=== PATIENT | female | born 1965 | race Caucasian/White ===

== ENCOUNTER 2021-04-24 00:22 | Emergency (ER) | payer OTHER ==
[2021-04-24] MEDS ORDERED: FAMOTIDINE 20 MG/2 ML VIAL IV STA (00:47)
[2021-04-24] MEDS ORDERED: diphenhydrAMINE 50 MG/ML 1 ML VIAL IVP STA (00:47)
[2021-04-24] MEDS ORDERED: methylPREDNISolone SOD SUCCI 125 MG/2 ML VIAL IV STA (00:47)
--- NOTE | 2021-04-24 00:48 | ED ---
Allergic Reaction HPI - General Chief complaint: Allergic Reaction Stated complaint: Sore throat Time Seen by Provider: 04/24/21 00:29 Source: patient, RN notes reviewed, old records reviewed Mode of arrival: ambulatory Limitations: no limitations - History of Present Illness Initial Comments: This is a 55-year-old female DF for evaluation. Patient states that she went to bed tonight and woke her up which causes her to go to the bathroom. Patient has history of high blood pressure has been the same medications for 15 years. Patient states she feels like something was resting of the back of her tongue and she feels like her daily thing is sitting on her tongue. She did gargle with saltwater with mild improvement but symptoms persisted. She denies being short of breath but does have some pain when swallowing. Otherwise no complaints no fevers. Patient is on lisinopril Complaint: allergic reaction, other (Lisinopril-induced angioedema) -: unknown Exposure: unknown Symptoms: other (Uvula swollen) Severity: mild Treatment Prior to Arrival: none Previous Allergy History: none - Related Data Home Medications Medication Instructions Recorded Confirmed Metoprolol Succinate [Toprol XL] 50 mg PO DAILY 06/07/15 06/08/15 lisinopriL [Prinivil] 20 mg PO DAILY 06/07/15 06/08/15 Allergies Allergy/AdvReac Type Severity Reaction Status Date / Time No Known Allergies Allergy Verified 04/24/21 00:27 Review of Systems ROS Statement: Those systems with pertinent positive or pertinent negative responses have been documented in the HPI. ROS Other: All systems not noted in ROS Statement are negative. Past Medical History Past Medical History: Hypertension History of Any Multi-Drug Resistant Organisms: None Reported Past Surgical History: No Surgical Hx Reported Past Anesthesia/Blood Transfusion Reactions: No Reported Reaction Past Psychological History: No Psychological Hx Reported Smoking Status: Never smoker Past Alcohol Use History: Occasional Past Drug Use History: None Reported General Exam General appearance: alert, in no apparent distress Head exam: Present: atraumatic, normocephalic, normal inspection Eye exam: Present: normal appearance, PERRL, EOMI. Absent: scleral icterus, conjunctival injection, periorbital swelling ENT exam: Present: normal exam, mucous membranes moist, other (Patient does have significant for swollen uvula resting on time, no stridor, no airway compromise) Neck exam: Present: normal inspection. Absent: tenderness, meningismus, lymphadenopathy Respiratory exam: Present: normal lung sounds bilaterally. Absent: respiratory distress, wheezes, rales, rhonchi, stridor Cardiovascular Exam: Present: regular rate, normal rhythm, normal heart sounds. Absent: systolic murmur, diastolic murmur, rubs, gallop, clicks GI/Abdominal exam: Present: soft, normal bowel sounds. Absent: distended, tenderness, guarding, rebound, rigid Extremities exam: Present: normal inspection, full ROM, normal capillary refill. Absent: tenderness, pedal edema, joint swelling, calf tenderness Back exam: Present: normal inspection Neurological exam: Present: alert, oriented X3, CN II-XII intact Psychiatric exam: Present: normal affect, normal mood Skin exam: Present: warm, dry, intact, normal color. Absent: rash Course Vital Signs 04/24/21 04/24/21 00:23 01:50 Pulse Rate 91 85 Respiratory 19 16 Rate Blood Pressure 131/75 O2 Sat by Pulse 98 96 Oximetry - Reevaluation(s) Reevaluation #1: 04/24/21 02:04 Medical records are reviewed Reevaluation #2: 04/24/21 02:04 Symptoms are improved here in the emergency department Reevaluation #3: 04/24/21 02:04 Patient prefers discharged home Reevaluation #4: 04/24/21 02:04 Patient understands to quit taking lisinopril, informed results and questions are answered Medical Decision Making - Medical Decision Making 55 female with uvulitis no sore throat no significant erythema, no fevers. Patient be treated as infectious is also on lisinopril which she is told to stop. Patient does not want hospital admission and she states she symptoms are improved and she will be discharged Disposition Clinical Impression: Uvulitis, Allergic reaction Disposition: HOME SELF-CARE Condition: Undetermined Instructions (If sedation given, give patient instructions): Anaphylaxis (ED), Angioedema (ED), Uvulitis (ED) Is patient prescribed a controlled substance at d/c from ED?: No Referrals: Ron Nance MD [REFERRING] - 1-2 days
[2021-04-24 01:56] VITALS: BP 131/75; PULSE 85; RESP 16
[2021-04-24 02:24] VITALS: TEMP 98.1
== END 2021-04-24 02:20 | disposition home or self-care (01) ==
LOC: EC 00:22
DX: K12.2 Cellulitis and abscess of mouth (principal); T78.3XXA Angioneurotic edema, initial encounter; I10 Essential (primary) hypertension
CPT/HCPCS: 99283; 96374; 96375 ×2; J1200; J2930

== ENCOUNTER 2022-05-02 02:28 | Emergency (ER) | payer OTHER ==
[2022-05-02 02:39] VITALS: BP 152/100; PULSE 95; RESP 24; TEMP 97.8
[2022-05-02] MEDS ORDERED: AMOXIC-POT CLAV 875MG STARTER PACK 2 TAB BTL PO STA (03:26)
[2022-05-02] MEDS ORDERED: DEXAMETHASONE SOD PHOSPHATE 10 MG/ML 1 ML VIAL IM STA (03:27)
[2022-05-02] MEDS ORDERED: FAMOTIDINE 20 MG TAB PO STA (03:27)
[2022-05-02] MEDS ORDERED: hydrOXYzine HCL 25 MG TAB PO STA (03:27)
--- NOTE | 2022-05-02 03:35 | ED ---
ENT HPI - General Chief complaint: ENT Stated complaint: throat swelling Time Seen by Provider: 05/02/22 03:04 Source: patient, RN notes reviewed, old records reviewed Mode of arrival: ambulatory Limitations: no limitations - History of Present Illness Initial comments: This is a 56-year-old female DF for evaluation patient feels like her uvula swollen again is happened before. She was here a few weeks ago for similar event. Patient was told to stop taking lisinopril she has not stopped taking her lisinopril. She presents today with same feeling and she has been dealing with symptoms of laryngitis and a course was patient is without fever. He will molar Without difficulty able to eat and drink without difficulty. No other complaints MD complaint: sore throat (swollen uvula) -: hour(s) Location: throat Severity: moderate Severity scale (1-10): 4 Quality: dull Consistency: constant Improves with: none Worsens with: swallowing Associated Symptoms: pain with swallowing - Related Data Home Medications Medication Instructions Recorded Confirmed Metoprolol Succinate [Toprol XL] 50 mg PO DAILY 06/07/15 06/08/15 lisinopriL [Prinivil] 20 mg PO DAILY 06/07/15 06/08/15 Previous Rx's Medication Instructions Recorded hydrOXYzine HCL [Atarax] 25 mg PO TID PRN #15 tab 04/24/21 predniSONE 50 mg PO DAILY #5 tab 04/24/21 Amoxic-Pot Clav 875-125Mg 1 tab PO Q12HR #20 tablet 05/02/22 [Augmentin 875-125] predniSONE 50 mg PO DAILY #5 tab 05/02/22 Allergies Allergy/AdvReac Type Severity Reaction Status Date / Time No Known Allergies Allergy Verified 05/02/22 02:39 Review of Systems ROS Statement: Those systems with pertinent positive or pertinent negative responses have been documented in the HPI. ROS Other: All systems not noted in ROS Statement are negative. Past Medical History Past Medical History: Hypertension History of Any Multi-Drug Resistant Organisms: None Reported Past Surgical History: No Surgical Hx Reported Past Anesthesia/Blood Transfusion Reactions: No Reported Reaction Past Psychological History: No Psychological Hx Reported Smoking Status: Never smoker Past Alcohol Use History: Occasional Past Drug Use History: None Reported General Exam Limitations: no limitations General appearance: alert, in no apparent distress Head exam: Present: atraumatic, normocephalic, normal inspection Eye exam: Present: normal appearance, PERRL, EOMI. Absent: scleral icterus, conjunctival injection, periorbital swelling ENT exam: Present: other (swollen uvula) Neck exam: Present: normal inspection. Absent: tenderness, meningismus, lymphadenopathy Respiratory exam: Present: normal lung sounds bilaterally. Absent: respiratory distress, wheezes, rales, rhonchi, stridor Cardiovascular Exam: Present: regular rate, normal rhythm, normal heart sounds. Absent: systolic murmur, diastolic murmur, rubs, gallop, clicks GI/Abdominal exam: Present: soft, normal bowel sounds. Absent: distended, tenderness, guarding, rebound, rigid Extremities exam: Present: normal inspection, full ROM, normal capillary refill. Absent: tenderness, pedal edema, joint swelling, calf tenderness Back exam: Present: normal inspection Neurological exam: Present: alert, oriented X3, CN II-XII intact Psychiatric exam: Present: normal affect, normal mood Skin exam: Present: warm, dry, intact, normal color. Absent: rash Course Vital Signs 05/02/22 02:35 Temperature 97.8 F Pulse Rate 95 Respiratory 24 Rate Blood Pressure 152/100 O2 Sat by Pulse 98 Oximetry - Reevaluation(s) Reevaluation #1: 05/02/22 03:34 Medical record is reviewed Reevaluation #2: 05/02/22 03:34 Symptoms improved here in the ER Reevaluation #3: 05/02/22 03:34 Patient is okay for discharge home Medical Decision Making - Medical Decision Making 56 female DF for evaluation of swollen uvula uvulitis as well as laryngitis. Symptoms improving here in the ER can be related lisinopril again recommended to stop taking lisinopril. Patient can be discharged home Disposition Clinical Impression: Laryngitis, Uvulitis Disposition: HOME SELF-CARE Condition: Good Instructions (If sedation given, give patient instructions): Uvulitis (ED) Prescriptions: Amoxic-Pot Clav 875-125Mg [Augmentin 875-125] 1 tab PO Q12HR #20 tablet predniSONE 50 mg PO DAILY #5 tab Is patient prescribed a controlled substance at d/c from ED?: No Referrals: Mallika Harris [Primary Care Provider] - 1-2 days Time of Disposition: 03:35
== END 2022-05-02 04:06 | disposition home or self-care (01) ==
LOC: EC 02:28
DX: K12.2 Cellulitis and abscess of mouth (principal); J04.0 Acute laryngitis; I10 Essential (primary) hypertension; Z79.899 Other long term (current) drug therapy
CPT/HCPCS: 96372; 99283; J1100

== ENCOUNTER 2024-09-11 07:50 | Emergency (ER) | payer OTHER ==
[2024-09-11 07:58] VITALS: TEMP 98
--- NOTE | 2024-09-11 08:03 | ED ---
General Adult HPI - General Chief complaint: Allergic Reaction Stated complaint: allergic reaction Time Seen by Provider: 09/11/24 07:53 Source: patient, RN notes reviewed Mode of arrival: ambulatory Limitations: no limitations - History of Present Illness Initial comments: 58-year-old female presents emergency department complaint of possible allergic reaction. Patient states that she started hydrochlorothiazide 3 weeks ago started having some issues stopped it and restarted Monday. Patient states that she will explain with swelling of her uvula. Patient states she was exposed to strep but states she is not feeling a strep throat. Patient has not fevers or chills no difficulty breathing states she just feels a get swollen she took 2 Benadryl prior to arrival. Patient denies headache dizziness no other complaints. - Related Data Home Medications Medication Instructions Recorded Confirmed Metoprolol Succinate [Toprol XL] 50 mg PO DAILY 06/07/15 06/08/15 lisinopriL [Prinivil] 20 mg PO DAILY 06/07/15 06/08/15 Previous Rx's Medication Instructions Recorded hydrOXYzine HCL [Atarax] 25 mg PO TID PRN #15 tab 04/24/21 predniSONE 50 mg PO DAILY #5 tab 04/24/21 Amoxic-Pot Clav 875-125Mg 1 tab PO Q12HR #20 tablet 05/02/22 [Augmentin 875-125] predniSONE 50 mg PO DAILY #5 tab 05/02/22 predniSONE 50 mg PO DAILY #5 tab 09/11/24 Allergies Allergy/AdvReac Type Severity Reaction Status Date / Time lisinopril Allergy Anaphylaxis Verified 09/11/24 07:58 Review of Systems ROS Statement: Those systems with pertinent positive or pertinent negative responses have been documented in the HPI. ROS Other: All systems not noted in ROS Statement are negative. Past Medical History Past Medical History: Hypertension History of Any Multi-Drug Resistant Organisms: None Reported Past Surgical History: No Surgical Hx Reported Past Anesthesia/Blood Transfusion Reactions: No Reported Reaction Past Psychological History: No Psychological Hx Reported Smoking Status: Never smoker Past Alcohol Use History: Occasional Past Drug Use History: None Reported General Exam Limitations: no limitations General appearance: alert, in no apparent distress Head exam: Present: atraumatic, normocephalic, normal inspection Eye exam: Present: normal appearance, PERRL, EOMI. Absent: scleral icterus, conjunctival injection, periorbital swelling ENT exam: Present: mucous membranes moist, TM's normal bilaterally, normal ext ernal ear exam. Absent: normal oropharynx (Uvula mild erythema, mild swelling noted, swallowing secretions well) Neck exam: Present: normal inspection, full ROM. Absent: tenderness, meningismus, lymphadenopathy Respiratory exam: Present: normal lung sounds bilaterally. Absent: respiratory distress, wheezes, rales, rhonchi, stridor Cardiovascular Exam: Present: regular rate, normal rhythm, normal heart sounds. Absent: systolic murmur, diastolic murmur, rubs, gallop, clicks Neurological exam: Present: alert, oriented X3, CN II-XII intact Skin exam: Present: warm, dry, intact, normal color. Absent: rash Course Vital Signs 09/11/24 09/11/24 07:53 09:17 Temperature 98 F 98 F Pulse Rate 86 83 Respiratory 20 18 Rate Blood Pressure 177/107 157/99 O2 Sat by Pulse 97 98 Oximetry Medical Decision Making - Medical Decision Making Was pt. sent in by a medical professional or institution ( PA, HEEL COVERER, urgent care, hospital, or group home...) When possible be specific @ -No Did you speak to anyone other than the patient for history (EMS, parent, family, police, friend...)? What history was obtained from this source @ -No Did you review nursing and triage notes (agree or disagree)? Why? @ -I reviewed and agree with nursing and triage notes Were old charts reviewed (outside hosp., previous admission, EMS record, old EKG, old radiological studies, urgent care reports/EKG's, group home records)? Report findings @ -No old charts were reviewed Differential Diagnosis (chest pain, altered mental status, abdominal pain women, abdominal pain men, vaginal bleeding, weakness, fever, dyspnea, syncope, headache, dizziness, GI bleed, back pain, seizure, CVA, palpatations, mental health, musculoskeletal)? @ -Uvulitis, strep, tonsillitis, allergic reaction EKG interpreted by me (3pts min.). @ -None X-rays interpreted by me (1pt min.). @ -None done CT interpreted by me (1pt min.). @ -None done U/S interpreted by me (1pt. min.). @ -None done What testing was considered but not performed or refused? (CT, X-rays, U/S, labs)? Why? @ -None What meds were considered but not given or refused? Why? @ -None Did you discuss the management of the patient with other professionals (professionals i.e. , PA, HEEL COVERER, lab, RT, psych nurse, geriatric social work professor, machine feeder raw stock, teacher, workers' compensation hearings officer, rn case mgr)? Give summary @ -No Was smoking cessation discussed for >3mins.? @ -No Was critical care preformed (if so, how long)? @ -No Were there social determinants of health that impacted care today? How? (Homelessness, low income, unemployed, alcoholism, drug addiction, transportation, low edu. Level, literacy, decrease access to med. care, penitentiary, rehab)? @ -No Was there de-escalation of care discussed even if they declined (Discuss DNR or withdrawal of care, Hospice)? DNR status @ -No What co-morbidities impacted this encounter? (DM, HTN, Smoking, COPD, CAD, Cancer, CVA, ARF, Chemo, Hep., AIDS, mental health diagnosis, sleep apnea, morbid obesity)? @ -None Was patient admitted / discharged? Hospital course, mention meds given and route, prescriptions, significant lab abnormalities, going to OR and other pertinent info. @ -Discharge patient presented for swelling of the uvula, patient has uvulitis. Patient would likely be allergic versus viral strep negative. Patient discharged on steroids, continue Benadryl. Undiagnosed new problem with uncertain prognosis? @ -No Drug Therapy requiring intensive monitoring for toxicity (Heparin, Nitro, Insulin, Cardizem)? @ -No Were any procedures done? @ -No Diagnosis/symptom? @ -\Uvulitis Acute, or Chronic, or Acute on Chronic? @ -Acute Uncomplicated (without systemic symptoms) or Complicated (systemic symptoms)? @ -Uncomplicated Side effects of treatment? @ -No Exacerbation, Progression, or Severe Exacerbation? @ -No Poses a threat to life or bodily function? How? (Chest pain, USA, IA, pneumonia, PE, COPD, DKA, ARF, appy, cholecystitis, CVA, Diverticulitis, Homicidal, Suicidal, threat to staff... and all critical care pts) @ -No - Lab Data Lab Results 09/11/24 Range/Units 07:59 Group A Strep (PCR) NOT DETECTED (Not Detectd) Disposition Clinical Impression: Allergic reaction, Uvulitis Disposition: HOME SELF-CARE Condition: Stable Instructions (If sedation given, give patient instructions): Uvulitis (ED) Additional Instructions: Please return to the Emergency Department if symptoms worsen or any other concerns. Prescriptions: predniSONE 50 mg PO DAILY #5 tab Is patient prescribed a controlled substance at d/c from ED?: No Referrals: None,Stated [Primary Care Provider] - 1-2 days
[2024-09-11] MEDS: FAMOTIDINE 20 MG/2 ML VIAL IV STA (08:22)
[2024-09-11] MEDS: methylPREDNISolone SOD SUCCI 125 MG/2 ML VIAL IV STA (08:22)
[2024-09-11 09:18] VITALS: BP 157/99; PULSE 83; RESP 18
== END 2024-09-11 09:31 | disposition home or self-care (01) ==
LOC: EC 07:50
DX: K12.2 Cellulitis and abscess of mouth (principal); Z88.8 Allergy status to other drugs, medicaments and biological substances
CPT/HCPCS: 87651; 99284; 96374; 96375; J3490; J2919